=== PATIENT | female | born 1995 | race Caucasian/White ===

== ENCOUNTER 2024-03-19 15:05 | Emergency (ER) | payer MEDICARE, MEDICAID, SELFPAY ==
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
--- NOTE | 2024-03-19 15:31 | MHC.CARE ---
Sherita santamaria [facility] calls to share that they assessed this individual in the community with dispo to follow up with medication providers. Sherita reports that she may not get an urgent appt however, as Dr Hart?s soonest appt is in April,? and the person may continue to decompensate. The individual is noted for IQ disability, and her day program staff ([facility] in [place]) noticed that she has been ruminating and focusing on , repeating these statements. She also is reported to have AH that she is and miscarrying, . No SI/ HI. Patient resides with her mother in [facility], but may end up in the ED from [facility] if she continues to decline
[2024-03-19 15:59] VITALS: BP 152/92; PULSE 84; RESP 14; TEMP 37.2; O2SAT 98; BMI 39.0
[2024-03-19 16:01] VITALS: RESP 16
--- NOTE | 2024-03-19 16:15 | MHC.EDTECH ---
Patient unable to void
[2024-03-19 16:20] LABS: MANUAL DIFF FLAG NO
[2024-03-19 16:23] LABS: Basophils Percent Auto 0.4 % (0-2); Hematocrit 40.1 % (37.0-47.0); Hemoglobin 13.3 g/dl (12.0-16.0); Imm Gran Abs Auto 0.03 X10*3/uL (0.00-0.03); Imm Gran Pct Auto 0.3 % (0.0-0.4); Lymphocytes Absolute Auto 1.6 X10*3/uL (1.2-4.9); Lymphocytes Percent Auto 15.6 % (20-40); Mean Corpuscular HGB Conc 33.2 g/dl (31.0-35.0); Mean Corpuscular Hemoglobin 28.4 pg (27.0-33.0); Mean Corpuscular Volume 85.5 fL (80.0-98.0); Monocytes Absolute Auto 0.6 X10*3/uL (0.1-1.2); Monocytes Percent Auto 6.2 % (2-11); Neutrophils Absolute Auto 7.9 x10*3/uL (2.0-8.3); Neutrophils Percent Auto 77.5 % (45-73); Platelet Count 202 X10*3/uL (160-400); Red Blood Count 4.69 X10*6/uL (4.20-5.50); Red Cell Distribution Width 13.8 % (11.0-16.0); White Blood Count 10.2 X10*3/uL (4.8-10.8)
--- NOTE | 2024-03-19 16:43 | MHC.EDTECH ---
Patient unable to provide urine sample at this time.
[2024-03-19 16:52] LABS: Ethanol < 10 mg/dL
[2024-03-19 16:57] LABS: Alanine Aminotransferase 19 U/L (0-31); Albumin Level 4.5 g/dL (3.5-5.0); Alkaline Phosphatase 65 U/L (39-117); Anion Gap 11 (12-20); Aspartate Amino Transferase 18 U/L (5-31); Bilirubin Total 0.3 mg/dL (0.0-1.0); Blood Urea Nitrogen 11 mg/dL (9-16); Calcium 9.3 mg/dL (8.4-10.2); Carbon Dioxide 21 mmol/L (22-29); Chloride 113 mmol/L (96-108); Creatinine Clr Calc Pharmacy 110.7; Estimated Glomerular Filt Rate > 60; Glucose Random 93 mg/dL (60-115); Potassium 3.8 mmol/L (3.3-5.1); Sodium 141 mmol/L (135-145); Total Protein 7.6 g/dL (6.5-8.0)
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
[2024-03-19 17:04] LABS: HCG Quantitative < 2 mIU/mL
[2024-03-19 19:39] VITALS: BP 134/74; PULSE 74; RESP 16; TEMP 36.6; O2SAT 97
== END 2024-03-19 19:46 | disposition home or self-care (01) ==
PROVIDERS: Registered Nurse Emergency; Emergency Provider Emergency Medicine; PCP Internal Medicine
DX: F31.9 Bipolar disorder, unspecified (principal); F22 Delusional disorders; R10.2 Pelvic and perineal pain; M25.561 Pain in right knee; Z51.81 Encounter for therapeutic drug level monitoring; Z79.899 Other long term (current) drug therapy
CPT/HCPCS: 36415; 80053; 80307; 84702; 85025; 99284; S9485